=== PATIENT | female | born 1985 | race Hispanic/Latino ===

== ENCOUNTER 2024-07-14 17:16 | Emergency (ER) | payer SELFPAY ==
[2024-07-14] MEDS ORDERED: diphenhydrAMINE 25 MG CAP ONE (19:05)
[2024-07-14] MEDS ORDERED: predniSONE 20 MG TAB ONE (19:05)
[2024-07-14] MEDS ORDERED: Acetaminophen 500 MG TAB ONE (19:05)
[2024-07-14] MEDS ORDERED: Famotidine 20 MG TAB ONE (19:06)
[2024-07-14 19:36] LABS: Bilirubin Neg (Negative); Blood, Urine 250 (Negative); Glucose, Urine (Dipstick) Normal (Negative); Ketone, Urine Negative (Negative); Leukocyte 100 (Negative); Nitrite Negative (Negative); Protein, Urine (Dipstick) 30 mg/dl (Neg-Trace); Specific Gravity, Urine 1.025 (1.005-1.030)
[2024-07-14 19:41] LABS: Pregnancy Test - Urine (BHCG) Negative (Negative); Pregu Control Background? CLEAR/WHITE (CLR/WHITE); Pregu Control Bar Appear? YES (CONTROL BAR)
[2024-07-14 19:42] LABS: Specific Gravity 1.025 (1.002-1.036)
[2024-07-14 19:43] LABS: Clarity Hazy (Clear)
[2024-07-14 19:45] LABS: RBC/HPF Greater than 50 HPF (0-3)
[2024-07-14 19:46] LABS: Bacteria/HPF None Seen HPF (None Seen); CAUTI Indications for Culture Fever or rigors; Mucous/LPF 2+ LPF (<2+)
[2024-07-14 19:47] LABS: Urine Culture Reflex No No
[2024-07-14] MEDS ORDERED: Ondansetron ODT 4 MG TAB ONE (20:17)
== END 2024-07-14 20:26 | disposition home or self-care (01) ==
LOC: CSHERS 17:16
DX: T78.40XA Allergy, unspecified, initial encounter (principal); N39.0 Urinary tract infection, site not specified; F17.210 Nicotine dependence, cigarettes, uncomplicated
CPT/HCPCS: 81001; 81025; 87086; 87428; 99283; J7512; Q0162

== ENCOUNTER 2025-05-12 23:57 | Emergency (ER) | payer OTHER ==
[2025-05-13] MEDS ORDERED: HYDROcodone/Acetaminophen 5/325 mg Tablet ONE (00:44)
[2025-05-13] MEDS ORDERED: Amoxicillin/Potassium Clav 875 MG TAB ONE ×2 (00:45→00:46)
== END 2025-05-13 00:44 | disposition home or self-care (01) ==
LOC: CSHERS 23:57
DX: K08.89 Other specified disorders of teeth and supporting structures (principal); F17.210 Nicotine dependence, cigarettes, uncomplicated
CPT/HCPCS: 99282